=== PATIENT | female | born 1975 | race Caucasian/White ===

== ENCOUNTER 2017-01-27 10:50 | Day surgery (SDC) | payer OTHER ==
[~2017-01-27] VITALS: Ht 154.9 cm; Wt 89.8 kg
[~2017-01-27 10:50] MED LIST: PROZAC40 MG PO
[2017-01-27] MEDS ORDERED: IBUPROFEN200 M1 PO (11:09)
--- NOTE | 2017-01-27 13:14 | NUR ---
PT HAS BEEN UP TO BR. PREMEDS GIVEN RAILS UP. FAMILY AT BS. INSTRUCTED TO NOT GET OOB WITHOUT ASSIST.
--- NOTE | 2017-01-27 17:36 | NUR ---
01/27/17 1736 Laura Lozano 1729-PATIENT ARRIVED TO PACU ON 10L MASK O2 SAT 100% ST HR 116. PATIENT REACTIVE EYES OPEN DENIES PAIN OR NAUSEA. 3 LAP SITES TO ABDOMEN CDI WITH STERI STRIPS. 1734-WEANED TO 8L MASK O2 SAT 100%
[2017-01-27] MEDS ORDERED: OXYCODON-ACETA1 EAC2 PO (17:43)
[2017-01-27] MEDS ORDERED: MAPAP325 MG PO (17:43)
[2017-01-27] MEDS ORDERED: IBUPROFEN600 MG PO (17:44)
--- NOTE | 2017-01-27 18:41 | NUR ---
PATIENT ARRIVED AROUND 182. WENT AND GOT HER A CUP OF ICE AND A CUP OF APPLE JUICE ALSO SOME JELLO.
--- NOTE | 2017-01-27 18:52 | NUR ---
PATIENT TO FLOOR FROM PACU VIA STRETCHER. TRANSFER TO BED WITH ASSIST. BEDSIDE REPORT RECEIVED FROM GENI. PATIENT REPORTS 10/07 ABD PAIN. 3 LAP SITES. PATIENT DENIES NAUSEA. PATIENT WAS MEDICATED FOR PAIN. SCD ON.PATIENT TOLERATED JELLO AND JUICE WELL. IV SITE PATENT AND FLUID IS INFUSING @ 85ML/HR.
--- NOTE | 2017-01-27 19:00 | NUR ---
BEDSIDE REPORT RECEIVED FROM JEAN AZEVEDO. PT SITTING UP IN BED, SCDS ON, PT DENIES NAUSEA. PT REPORTS PAIN AT 4-5/10 AT THIS TIME, STATES "DILAUDID HELPED". PT'S AT BEDSIDE, IVF INFUSING AT 85 ML/HR WNL. SURGICAL SITES CLEAN DRY INTACT WITH STERI STRIPS. PT HAS CALL LIGHT IN REACH, WILL CONTINUE TO MONITOR.
--- NOTE | 2017-01-27 19:20 | NUR ---
ROUNDED CHARGE. PATIENT DENIES ANY COMMENTS, QUESTIONS, OR CONCERNS. PATIENT DENIES ANY PAIN OR NAUSEA AT THIS TIME. NO NEEDS NOTED. CALL LIGHT IN REACH. AT BEDSIDE.
--- NOTE | 2017-01-27 19:25 | NUR ---
SECOND SET OF POST OP VITAL SIGNS COMPLETE. PT HR 108, BP 118/62 (72), RESPIRATIONS 14. PT STATES PAIN IS 5/10 IN UPPER ABDOMEN. PT ADMISSION ASSESSMENT COMPLETE. SURGICAL SITES CLEAN, DRY, INTACT WITH STERI STRIPS X 3. PT DENIES NAUSEA, IS EATING SOME ICE CHIPS. BOWEL TONES HYPOACTIVE X 4. PT DENIES TOILETING NEEDS, HAS NOT URINATED THUS FAR, PLAN TO GET UP AT NEXT SET OF POST OP VITALS. IVF INFUSING WNL. PT HAS CALL LIGHT WITHIN REACH.
--- NOTE | 2017-01-27 20:37 | NUR ---
ADMINISTERED PRN PERCOCET FOR 7/10 ABD PAIN. PT TOLERATING ORAL FLUIDS, JELLO WELL, DENIES NAUSEA. PT AT BEDSIDE. WILL CONTINUE TO MONITOR.
--- NOTE | 2017-01-27 20:55 | NUR ---
ASSISTED PT TO THE RESTROOM WITH SBA, PT STEADY ON FEET, PT DENIES DIZZINESS. PT HAD 300 ML URINE OUT. BROUGHT PT CRACKERS, JUICE, JELLO. HOOKED PT UP TO CONTINUOUS PULSE OXIMETRY, EDUCATED PT ON USE OF INCENTIVE SPIROMETER, PT DEMONSTRATED WITH 1750 ML BEST EFFORT. IVF INFUSING, SCDS ON. PTS AT BEDSIDE, CALL LIGHT IN REACH.
--- NOTE | 2017-01-27 22:30 | NUR ---
CHECKED ON PT, PT RESTING ON RIGHT SIDE, AWAKENS TO VOICE UPON RN ENTERING ROOM. IVF INFUSING. PT HAS NO REQUESTS AT THIS TIME. CALL LIGHT IN REACH.
--- NOTE | 2017-01-28 00:34 | NUR ---
IN PT'S ROOM TO ASSESS PT. PT BOWEL TONES HYPOACTIVE X 4. PT ABDOMEN SOFT. PT DENIES NAUSEA, RATES PAIN AT 3/10 IN RIGHT UPPER ABDOMEN. PTS LUNGS CLEAR TROUGHOUT ALL LOBES. HR REMAINS TACHYPNIC AT 110, SPO2 91% ON ROOM AIR. PT HAS CALL LIGHT, BROUGHT PT MORE CRACKERS PER REQUEST.
--- NOTE | 2017-01-28 02:11 | NUR ---
ADMINISTERED PRN IBUPROFEN FOR 5/10 ABD PAIN. PT SITTING UP IN BED, GAVE PT BLANKET FOR SUPPORT. PT HAS CALL LIGHT IN REACH, NO ADDITIONAL REQUESTS AT THIS TIME. IVF INFUSING, SCDS ON.
--- NOTE | 2017-01-28 02:47 | NUR ---
ADMINISTERED PRN PERCOCET FOR 5/10 PAIN. PT AWAKE, SITTING UP IN BED, SPO2 93% ON ROOM AIR, IVF INFUSING, SCDS ON. BROUGHT PT ICE WATER. ENCOURAGED PT TO EAT CRACKERS WITH PAIN PILL. PT HAS CALL LIGHT IN REACH.
--- NOTE | 2017-01-28 05:02 | NUR ---
PT STATES PAIN IS 2/10 AT THIS TIME. ABDOMEN SOFT, BOWEL TONES HYPOACTIVE AT THIS TIME. PT RESTING IN BED, LAP SITES CLEAN, DRY, INTACT X 4. PT HAS NO REQUESTS AT THIS TIME, CONTINUES TO DENY NAUSEA. CALL LIGHT IN REACH.
--- NOTE | 2017-01-28 05:33 | NUR ---
PT HAS RESTED IN BED THROUGHOUT SHIFT, UP TO RESTROOM, AMBULATED WELL WITH SBA. PT RECEIVED PERCOCET X 2 AND IBUPROFEN X 1 FOR RIGHT UPPER QUADRANT PAIN. PT HAS DENIED NAUSEA, TOLERATATED CRACKERS, JELLO, AND ORAL FLUIDS WELL. SCDS HAVE BEEN ON WHILE PT IN BED. PT VOIDING QUANTITY SUFFICIENT THROUGHOUT SHIFT.
--- NOTE | 2017-01-28 06:25 | NUR ---
ADMINISTERED PRN PERCOCET X 1 PER PT REQUEST. PT STATES PAIN AT 2/10 AT THIS TIME, SPO2 93% ON ROOM AIR. IVF INFUSING, SCDS ON. PT HAS FLUIDS, AND CRACKERS ON BEDSIDE TABLE IN REACH. GAVE PT MENU, PHONE, INSTRUCTIONS FOR ORDERING BREAKFAST. CALL LIGHT IN REACH.
--- NOTE | 2017-01-28 07:37 | NUR ---
RECIEVED BEDSIDE REPORT FROM JEAN NUNES. PT AWAKE AND ALERT.
--- NOTE | 2017-01-28 15:03 | OR ---
[facility] [address], [place] [address] Signed DATE OF OPERATION: 01/27/2017 SURGEON: Willem Galeano MD PREOPERATIVE DIAGNOSES: 1. Chronic calculous cholecystitis. 2. Morbid obesity. POSTOPERATIVE DIAGNOSES: 1. Chronic calculous cholecystitis. 2. Morbid obesity. PROCEDURES: 1. Laparoscopic cholecystectomy with intraoperative cholangiogram, prolonged, complicated difficult. 2. Surgeon-directed fluoroscopy. ANESTHESIA: Intravenous general endotracheal (Monica Faye CRNA) and local 20 mL of 0.25% Marcaine with epinephrine. INDICATION: This obese 41-year-old white woman is a patient of Agatha Baron, and has had recurrent right upper abdominal low chest pain for nearly a year. She has ultimately undergone a gallbladder ultrasound under the direction of ZACHARY Connors and found to have at least one large gallstone and possibly other gallstones. 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 She is in good health and other ways, though she is obese. She is admitted at this time to undergo cholecystectomy preferred by laparoscopic approach. She understands well the risks of bleeding, infection, bile duct injury, need for open procedure, and other unforeseen complications. Understands this, she wished to proceed. FINDINGS: She has a very thick abdominal wall pannus and considerable amount of omentum and omental adhesions to the gallbladder. The liver was mildly fatty infiltrated. The gallbladder was found to be chronically inflamed. Rather prolonged dissection of the gallbladder was required for a safe extraction. The gallbladder once excised showed a large square flat stone and profound cholesterolosis of mucosa. The intraoperative cholangiogram was normal. The operation was prolonged, but without complication and safely performed. DESCRIPTION OF PROCEDURE: The patient was brought to the operating room, given a general endotracheal anesthetic. Preoperative antibiotics were given. Sequential compression device stockings used and heparin subcutaneously administered. The abdomen was prepared with a chlorhexidine solution and draped sterilely. An infraumbilical incision was made and using an open Rudy cannula technique, pneumoperitoneum was achieved to a level of 14 mmHg of carbon Electronically Signed By: WILLEM GALEANO MD 01/28/17 1503 PATIENT NAME: ZEUS JAIME OPERATIVE REPORT DATE OF : 79 PHYSICIAN: WILLEM GALEANO MD REPORT #: [id number] REPORT IS CONFIDENTIAL AND NOT TO BE RELEASED WITHOUT AUTHORIZATION [facility] [address], [place] [address] Signed dioxide gas. Intraabdominal inspection showed no sign of ascites or carcinomatosis. The gallbladder was obscured from view due to a fatty omentum. The liver itself had mild fatty infiltration. Three additional trocars were placed in usual configuration in the subxiphoid, right midclavicular, and right anterior axillary line. Gallbladder was elevated cephalad and was noted to be in dealt with omentum. A fair amount of time was required to free the omentum from the gallbladder, but ultimately it was and the gallbladder was able to be elevated cephalad. The infundibulum of gallbladder was retracted laterally and using blunt and electrocautery dissection, the triangle of Calot was dissected free ultimately identifying well the cystic artery and cystic duct. The critical view of safety was maintained. The clips were applied across the cystic artery and it was divided. A clip was applied across the gallbladder cystic duct junction and a transverse choledochotomy made in the cystic duct. Retrograde milking of the cystic duct showed thick clear bile. Using the Diaz type cholangiocatheter, intraoperative cholangiography was undertaken showing free flow of contrast in biliary tree with prompt emptying into the duodenum. There was no sign of biliary anomaly or other abnormality. The cystic duct was triply clipped and divided. The gallbladder was dissected free in a retrograde fashion using electrocautery. Gallbladder was extracted through the infraumbilical port site after being placed in an endobag. It was opened on the back table and found to have a flat 2.5 cm jagged edged stone. The mucosa of the gallbladder was markedly chronically inflamed with cholesterolosis. Irrigation was undertaken in subhepatic space and once cleared completely, the trocars were removed under direct visualization showing no sign of bleeding. The infraumbilical fascial incision was reapproximated with interrupted 0 Vicryl suture. All wounds were copiously irrigated with saline solution and the skin was closed with interrupted 3-0 Vicryl. Steri-Strips were applied. The patient was ultimately extubated and transferred to recovery room in good condition having suffered no complications. Sponge, needle, and instrument counts reported as correct x3. Willem Galeano MD /MODL /[id number] Electronically Signed By: WILLEM GALEANO MD 01/28/17 1503 PATIENT NAME: ZEUS JAIME OPERATIVE REPORT DATE OF : 79 PHYSICIAN: WILLEM GALEANO MD REPORT #: [id number] REPORT IS CONFIDENTIAL AND NOT TO BE RELEASED WITHOUT AUTHORIZATION [address], [place] [address] Signed cc: MD Agatha Geller PA-C Electronically Signed By: WILLEM GALEANO MD 01/28/17 1503 PATIENT NAME: ZEUS JAIME OPERATIVE REPORT DATE OF : 79 PHYSICIAN: WILLEM GALEANO MD REPORT #: [id number] REPORT IS CONFIDENTIAL AND NOT TO BE RELEASED WITHOUT AUTHORIZATION
== END 2017-01-28 09:55 | disposition home or self-care (01) ==
LOC: DS 10:50 → MS 18:15 → DS 01-28 09:55
PROVIDERS: Surgery
PROC: BF13YZZ Fluoroscopy of Gallbladder and Bile Ducts using Other Contrast (ICD-10-PCS; 2017-01-27)
PROC: 0FT44ZZ Resection of Gallbladder, Percutaneous Endoscopic Approach (ICD-10-PCS; principal; 2017-01-27 13:15)
DX: K80.10 Calculus of gallbladder with chronic cholecystitis without obstruction (principal); E66.01 Morbid (severe) obesity due to excess calories; K21.9 Gastro-esophageal reflux disease without esophagitis; Z88.2 Allergy status to sulfonamides; Z90.49 Acquired absence of other specified parts of digestive tract; Z68.37 Body mass index [BMI] 37.0-37.9, adult; Z98.890 Other specified postprocedural states
CPT/HCPCS: 00790; 74300; J0330; J0690; J1100; J1170; J1644; J1885; J2250; J2405; J2704; J3010; J7120; Q9967

== ENCOUNTER 2018-05-10 11:09 | Emergency (ER) | payer OTHER ==
[~2018-05-10] VITALS: Ht 154.9 cm; Wt 85.3 kg
[~2018-05-10 11:09] MED LIST changes: +IBUPROFEN200 M1 PO; +IBUPROFEN600 MG PO; +MAPAP325 MG PO; +OXYCODON-ACETA1 EAC2 PO
[2018-05-10] MEDS ORDERED: NORCO 5-325 TA1 EACH PO (13:42)
[2018-05-10] MEDS ORDERED: FLOMAX0.4 MG PO (13:42)
[2018-05-10] MEDS ORDERED: LEVAQUIN500 MG PO (13:42)
[2018-05-10] MEDS ORDERED: ONDANSETRON ODT8 MG PO (13:42)
== END 2018-05-10 15:00 | disposition home or self-care (01) ==
LOC: ED 11:09
DX: N13.2 Hydronephrosis with renal and ureteral calculous obstruction (principal); N39.0 Urinary tract infection, site not specified; Z88.2 Allergy status to sulfonamides; Z79.899 Other long term (current) drug therapy
CPT/HCPCS: 74176; 80053; 81001; 82150; 83690; 84703; 85025; 96361; 96365; 96375; 99284-25; J1170; J1200; J1885; J1956; J2405; J7030

== ENCOUNTER 2018-06-26 07:00 | Day surgery (SDC) | payer OTHER ==
[~2018-06-26] VITALS: Ht 154.9 cm; Wt 83.9 kg
--- NOTE | ~2018-06-26 | OR ---
[facility] [address], [place] [address] Draft DATE OF OPERATION: 06/26/2018 SURGEON: Ava Sales MD PREOPERATIVE DIAGNOSIS: Left distal ureterolithiasis. POSTOPERATIVE DIAGNOSIS: Left distal ureterolithiasis. PROCEDURES PERFORMED: 1. Diagnostic cystoscopy with left retrograde pyelogram. 2. Left semi-rigid ureteroscopy with laser lithotripsy and basket extraction of ureteral calculi. ANESTHESIA: General. ESTIMATED BLOOD LOSS: None. COMPLICATIONS: None. SPECIMENS: None. Correction specimens fragments of distal left ureteral calculus sent to the lab for stone analysis. DRAINS: None. INDICATIONS FOR PROCEDURE: Ms. Ochoa is a very pleasant 43-year-old female who initially presented to me in early April with a history of sudden onset left-sided flank pain that brought her to the emergency department. She underwent a CT scan of the abdomen and pelvis, which revealed a 7 x 3 mm distal left ureteral calculus. At the time, she was also noted to have a UA that was suspicious for infection, so she was placed on oral Levaquin. She saw subsequently cell was seen by me in the clinic and her UA at that time appeared to normalize. She was denying any fevers or chills, or any nausea or vomiting. At that time, she wanted to continue to attempt a trial of passage with left distal ureteral PATIENT NAME: ZEUS OCHOA OPERATIVE REPORT DATE OF : 79 REPORT #: [id number] PHYSICIAN: AVA SALES MD PCP: ALMA MARTELL PAC REPORT IS CONFIDENTIAL AND NOT TO BE RELEASED WITHOUT AUTHORIZATION [facility] [address], [place] [address] Draft calculus. She returned on June 08, 2018 and had not experienced any pain for at least two weeks. She thought it was a possibility that she would pass the stone. She underwent a KUB which revealed the presence of the 3 x 7 stone in distal left ureter in the same position as before. At that time, I recommended that she undergo surgical extraction of her stone. After discussion of the risks and benefits of the procedure, she agreed to proceed. FINDINGS: 1. On cystoscopy, there was no evidence of any suspicious masses, lesions, or stones. Bilateral ureteral orifices are in the OR in their normal anatomic location. There is no evidence of any bladder wall trabeculation or other abnormality of the bladder wall. 2. Left retrograde pyelogram was performed which revealed a filling defect in the distal left ureter that appeared to be around 7 mm in length, very consistent with her known left ureteral calculus. 3. An MR6 semi-rigid ureteroscope was inserted into the distal left ureter and the stone was visualized and fragmented with the holmium laser at 8 and 0.8 settings with a two 270 micron fiber. 100% of the stone burden was successfully extracted. There was no evidence of any trauma to the ureteral wall before or after extraction of the stone. No stent was placed. 4. A repeat left retrograde pyelogram was performed, which revealed a patent left ureter as well as no evidence of any filling defects in the left collecting system. DESCRIPTION OF PROCEDURE: After informed consent was obtained, the patient was taken back to the operating room. [facility] table, where general anesthesia was induced. She was placed in the dorsal lithotomy position and her genitalia prepped and draped in a standard sterile fashion. Using a 30-degree lens on a 22.5-Occitan introducer, rigid cystoscope was inserted through the urethra into her bladder under direct visualization. Panendoscopic views of the bladder were then obtained including the lateral holliday, floor, dome, and trigone areas. Please see above findings. I turned my attention to the left ureteral orifice. A cone-tipped catheter was advanced to the level of the left ureteral orifice and a left retrograde pyelogram was performed. Please see above findings. The cone-tipped catheter was then removed and semi-rigid ureteroscope was inserted through the urethra into the bladder under direct visualization. The semi-rigid ureteroscope was advanced into the distal left ureter where the 7 x 3 mm stone was visualized. The stone was fragmented with a holmium laser and a 270 micron fiber. The stone fragmented with moderate difficulty and the fragments were then extracted using a Zero tip basket and placed into the bladder. Once all the stone fragments were removed. I performed a thorough left-sided ureteroscopy which revealed no additional fragments of stone on the left ureter. I then report performed a repeat left retrograde pyelogram. Please see above findings. The ureteroscope was then removed from the left ureter and the stones were collected using PATIENT NAME: ZEUS OCHOA OPERATIVE REPORT DATE OF : 79 REPORT #: [id number] PHYSICIAN: AVA SALES MD PCP: ALMA MARTELL PAC REPORT IS CONFIDENTIAL AND NOT TO BE RELEASED WITHOUT AUTHORIZATION [address] [address] Draft the cystoscope. The patient's bladder was then drained and the cystoscope was removed. The procedure was then terminated. The patient tolerated the procedure well without complication. She will now be transferred to the postanesthesia care unit in stable condition. DISPOSITION: I discussed the details of today's procedure with the patient's and answered all of his questions. She was given Cipro 500 mg p.o. b.i.d. for a total of 5 days along with Ultram 50 mg p.o. q.8 hours p.r.n. pain. She will be scheduled to return to clinic in 4 to 6 weeks to discuss the results of her stone analysis. MD ADE Rendon/AIDE /[id number] Copies: ~ PATIENT NAME: ZEUS OCHOA OPERATIVE REPORT DATE OF : 79 REPORT #: [id number] PHYSICIAN: AVA SALES MD PCP: ALMA MARTELL PAC REPORT IS CONFIDENTIAL AND NOT TO BE RELEASED WITHOUT AUTHORIZATION
[~2018-06-26 07:00] MED LIST changes: +FLOMAX0.4 MG PO; +LEVAQUIN500 MG PO; +NORCO 5-325 TA1 EACH PO; +ONDANSETRON ODT8 MG PO
--- NOTE | 2018-06-26 09:47 | NUR ---
[facility] ON ROOM AIR WITH ORAL AIRWAY IN PLACE. SATS 87% ON RA. O2 AT 6L VIA MASK PLACED WITH SATS INCREASING TO 100%. 0938 ORAL AIRWAY REMOVED. ENCOURAGED COUGH, DEEP BREATHING. 0940 OXYGEN REMOVED AND PT REPOSITIONED SELF TO R SIDE. SATS 90-95% ON RA. 0945 ANESTHESIA AT BEDSIDE TALKING WITH PT ABOUT NAUSEA. PT WITH NO C/O'S NAUSEA.
--- NOTE | 2018-06-26 10:11 | NUR ---
PT ARRIVES TO DS RM 4 AWAKE, RESP EVEN AND UNLABORED. PT DENIES ANY PAIN OR NAUSEA. SCD'S IN PLACE. PT STATES SHE IS SLEEPY AND REQUESTS TO HAVE LIGHTS TURNED DOWN. CALL LIGHT WITHIN REACH, PT SPOUSE AT BEDSIDE. PT PROVIDED ICED WATER AND CRACKERS.
[2018-06-26] MEDS ORDERED: ULTRAM50 MG PO (10:35)
[2018-06-26] MEDS ORDERED: CIPRO500 MG PO (10:37)
--- NOTE | 2018-06-26 11:38 | NUR ---
1045: PT USES CALL LIGHT TO ALERT RN OF URGE TO VOID. PT SITS AT SIDE OF BED, DENIES DIZZINESS OR NAUSEA, PT AMBULATES WITH STEADY GAIT AND RN ASSIST TO BATHROOM. PT ABLE TO VOID "SMALL AMOUNT" WITH NO PROBLEMS. PT BACK IN BED AND STATES, "IS THERE ANYTHING THAT CAN HELP WITH THIS ANNOYING URGE TO PEE?" PT OFFERED AZO AND ACCEPTS, SEE EMAR. 1100: PT BACK UP TO BATHROOM WITH RN ASSIST. PT ABLE TO VOID QS WITH NO PROBLEMS BUT STATES LEFT FLANK PAIN; SEE EMAR. HOME SCRIPT GIVEN TO SPOUSE TO TAKE TO PHARMACY. 1130: PT TOLERATES PO WELL AND NO LONGER HAS LEFT FLANK PAIN. RESTING IN BED WITH CALL LIGHT IN REACH.
--- NOTE | 2018-06-26 11:53 | NUR ---
PT SITTING UP-ALERT, ORIENTED AND SUPPORTED BY HER SPOUSE. PT SEEMS PREPARED, APPEARED ANXIOUS TO SEE DR BEFORE SURGERY. EXTENDED A BLESSING VISITOR WALKED IN. WILL FOLLOW NEEDED
--- NOTE | 2018-06-26 12:26 | NUR ---
1200: DC CRITERIA MET. PT DRESSES SELF WITH HELP FROM SPOUSE. DC INSTRUCTIONS GIVEN IN PRESENCE OF PT AND SPOUSE, ALL QUESTIONS ADDRESSED. PT DC'S VIA HOME WITH SPOUSE.
== END 2018-06-26 12:20 | disposition home or self-care (01) ==
LOC: DS 07:00 → OPS 07:00 → DS 08:45 → OPS 12:20
PROVIDERS: Urology
PROC: 0TC78ZZ Extirpation of Matter from Left Ureter, Via Natural or Artificial Opening Endoscopic (ICD-10-PCS; principal; 2018-06-26 08:45)
PROC: 0T778DZ Dilation of Left Ureter with Intraluminal Device, Via Natural or Artificial Opening Endoscopic (ICD-10-PCS; 2018-06-26 08:45)
PROC: BT1FYZZ Fluoroscopy of Left Kidney, Ureter and Bladder using Other Contrast (ICD-10-PCS; 2018-06-26 08:45)
DX: N20.1 Calculus of ureter (principal); F41.9 Anxiety disorder, unspecified; Z88.2 Allergy status to sulfonamides; Z79.899 Other long term (current) drug therapy
CPT/HCPCS: 00918; 74420; 82365; C1769; J0696; J1100; J1200; J1885; J2405; J2704; J3010; J7120; Q9967

== ENCOUNTER 2021-07-29 16:07 | Emergency (ER) | payer OTHER ==
[~2021-07-29] VITALS: Ht 154.9 cm; Wt 83.9 kg
[~2021-07-29 16:07] MED LIST changes: +CIPRO500 MG PO; +ULTRAM50 MG PO
[2021-07-29] MEDS ORDERED: HYDROCODON-ACE1 EA11 PO (18:23)
== END 2021-07-29 19:03 | disposition home or self-care (01) ==
LOC: ED 16:07
DX: S92.355A Nondisplaced fracture of fifth metatarsal bone, left foot, initial encounter for closed fracture (principal); W18.40XA Slipping, tripping and stumbling without falling, unspecified, initial encounter; Y92.811 Bus as the place of occurrence of the external cause; Z88.2 Allergy status to sulfonamides; Z79.899 Other long term (current) drug therapy
CPT/HCPCS: 73630; 99283-25; A9270